=== PATIENT | male | born 2000 | race Hispanic/Latino ===

== ENCOUNTER 2020-10-18 16:46 | Emergency (ER) | payer OTHER, BC ==
[2020-10-18] MEDS ORDERED: CYCLOBENZAPRINE 10 MG TAB ONE (18:23)
[2020-10-18] MEDS ORDERED: IBUPROFEN 200 MG TAB PO ONE (18:23)
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
[2020-10-18 20:03] VITALS: BP 121/73; O2SAT 100
== END 2020-10-18 19:51 | disposition home or self-care (01) ==
LOC: ER 16:46
DX: S16.1XXA Strain of muscle, fascia and tendon at neck level, initial encounter (principal); V49.40XA Driver injured in collision with unspecified motor vehicles in traffic accident, initial encounter
CPT/HCPCS: 99284